=== PATIENT | female | born 1950 | race Caucasian/White ===

== ENCOUNTER 2023-01-19 13:31 | Outpatient (CLI) | payer MEDICARE, SELFPAY ==
--- NOTE | ~2023-01-19 | US_ITS ---
EXAMINATION: US carotid duplex BI DATE: 01/19/2023 14:01 INDICATION: Right upper extremity and facial paresthesias TECHNIQUE: Grayscale, color Doppler, and pulsed Doppler images of the cervical carotid arteries were obtained. The degree of vessel stenosis is placed in one of the following categories: normal, <50%, 5 0-69%, >=70% but less than near-occlusion, near-occlusion, or total occlusion. Note that percent sten osis relative to normal distal artery lumen diameter is indirectly measured from velocity measurement s as described by Vargas, et al. Radiology 2003; 229:340-346. COMPARISON: None. FINDINGS: RIGHT: The right common carotid artery (CCA) peak systolic velocity (PSV) is 103 cm/s. The right internal ca rotid artery (ICA) PSV is 101 cm/s. The right ICA end-diastolic velocity (EDV) is 33 cm/s. The right ICA/CCA PSV ratio is 1.0. Grayscale and color Doppler images yield an estimate of <50% diameter reduc tion from plaque in the ICA. The external carotid artery (ECA) PSV is 101 cm/s. There is antegrade fl ow in the right vertebral artery. LEFT: The left CCA PSV is 109 cm/s. The left ICA PSV is 87 cm/s. The left ICA EDV is 28 cm/s. The left ICA/ CCA PSV ratio is 0.8. Grayscale and color Doppler images yield an estimate of <50% diameter reduction from plaque in the ICA. The ECA PSV is 71 cm/s. There is antegrade flow in the left vertebral artery . IMPRESSION: 1. <50% stenosis in the right internal carotid artery. 2. <50% stenosis in the left internal carotid artery. Reviewed, dictated and finalized at location A.
== END 2023-01-19 13:32 | disposition home or self-care (01) ==
LOC: ANHIMG 13:32
PROVIDERS: PCP Family Medicine; Visit Provider Family Medicine
DX: R20.2 Paresthesia of skin (principal); I65.23 Occlusion and stenosis of bilateral carotid arteries
CPT/HCPCS: 93880

== ENCOUNTER 2024-09-19 12:37 | Outpatient (CLI) | payer MEDICARE, SELFPAY ==
--- NOTE | ~2024-09-19 | CT_ITS ---
Clinical indication:Pulmonary nodule COMPARISON:None TECHNIQUE: Multiple contiguous axial images of the chest were performed following the administration of intravenous contrast. DLP: 362 mGy-cm FINDINGS: LOWER NECK: The thyroid gland is heterogeneous without mass effect. No morphologically suspicious or pathologically enlarged lymph nodes within the supraclavicular regio n. LUNG: Within the left upper lobe, adjacent to the aortopulmonary window of the mediastinum is an irre gularly shaped focus of decreased attenuation measuring 6.2 x 7.1 mm (axial series, image 30). This i s felt to be an extension of adjacent scar tissue, rather than a discrete pulmonary nodule for which follow-up examination in 3-6 months is recommended. Alternatively, comparison to prior may also be pe rformed, if outside imaging is available. No discrete pulmonary nodule is identified. The lungs are clear. MEDIASTINUM:No pathologically enlarged or morphologically suspicious lymph nodes within the mediastin um. A large hiatal hernia is noted with adjacent compressive atelectasis, and retained gastric contents f or which an esophagram would provide better delineation. HEART:The heart is of normal size, without pericardial effusion. SOFT TISSUES OF THE CHEST: Bulky calcifications along the anterior chest wall, right greater than lef t. The remainder of the visualized soft tissues of the chest are otherwise unremarkable. BONES OF THE CHEST: Diffuse bony demineralization. There are bridging endplate osteophytes at multiple levels in the thoracic spine, consistent with dif fuse idiopathic skeletal hyperostosis (DISH). VISUALIZED PORTION OF THE UPPER ABDOMEN: The gallbladder is surgically absent. The pancreas enhances homogeneously. Punctate calcifications identified within the splenic parenchyma, suggesting prior granulomatous dise ase. Remainder of the visualized splenic parenchyma is unremarkable. IMPRESSION: No acute intrathoracic findings, as detailed above. Within the left upper lobe, adjacent to the aortopulmonary window of the mediastinum is an irregularl y shaped, subcentimeter focus of decreased attenuation which is felt to be an extension of adjacent s car tissue, rather than a discrete pulmonary nodule for which follow-up examination in 3-6 months is recommended. Alternatively, comparison to prior may also be performed, if outside imaging is available. Reviewed, dictated and finalized at location A. SUPERVISOR IMPRESSION: No acute intrathoracic findings, as detailed above. Within the left upper lobe, adjacent to the aortopulmonary window of the medias tinum is an irregularly shaped, subcentimeter focus of decreased attenuation wh ich is felt to be an extension of adjacent scar tissue, rather than a discrete pulmonary nodule for which follow-up examination in 3-6 months is recommended. Alternatively, comparison to prior may also be performed, if outside imaging is available.
[2024-09-19 13:02] LABS: Estimated Glomerular Filt Rate 54
== END 2024-09-19 12:38 | disposition home or self-care (01) ==
PROVIDERS: PCP Internal Medicine Cardiovascular Disease; Visit Provider Nurse Practitioner Family
DX: R91.1 Solitary pulmonary nodule (principal); Z91.89 Other specified personal risk factors, not elsewhere classified
CPT/HCPCS: 71260; Q9967

== ENCOUNTER 2025-03-29 14:34 | Outpatient (CLI) | payer MEDICARE, SELFPAY ==
--- NOTE | ~2025-03-29 | CT_ITS ---
EXAMINATION:CT diagnostic chest w con DATE: 03/29/2025 15:11 INDICATION: Left lung nodule. TECHNIQUE: Computed tomography (CT) of the chest was performed with 75 mL Omnipaque 350 intravenous contrast. Automated exposure control and iterative reconstruction technique were employed. The dose-length product (DLP) was 280.35 mGy-cm. COMPARISON: Chest CT 09/19/2024 FINDINGS: There is a stable 6 mm nodule in right upper lobe. There is mild atelectasis bilaterally. There is a stable pleural-based 7 mm nodule in left upper lobe. No pleural effusion. There is a 12 mm nodule in left thyroid lobe, likely not clinically significant. The heart size is normal. No pericardial effusion. There is a large sliding hiatal hernia. There are changes of cholecystectomy. Calcifications in the spleen are consistent with old granulomatous disease. There is kyphosis of thoracic spine with mild chronic anterior wedging of multiple vertebral bodies. There is moderate thoracic spondylosis. IMPRESSION: 1. Pulmonary nodules, stable from 09/19/2024, likely benign. Noncontrast low-dose chest CT is recommended in 12 months. Reviewed, dictated and finalized at location E. IMPRESSION: 1. Pulmonary nodules, stable from 09/19/2024, likely benign. Noncontrast low-dos e chest CT is recommended in 12 months.
[2025-03-29 15:01] LABS: Estimated Glomerular Filt Rate 54
== END 2025-03-29 14:35 | disposition home or self-care (01) ==
PROVIDERS: PCP Internal Medicine Cardiovascular Disease; Visit Provider Family Medicine
DX: R91.1 Solitary pulmonary nodule (principal); Z91.89 Other specified personal risk factors, not elsewhere classified; R91.8 Other nonspecific abnormal finding of lung field
CPT/HCPCS: 71260; Q9967